=== PATIENT | male | born 1965 | race Caucasian/White ===

== ENCOUNTER 2017-11-13 15:40 | Emergency (ER) | payer MEDICAID ==
[~2017-11-13] VITALS: Ht 175.3 cm; Wt 74.8 kg
[2017-11-13 15:49] VITALS: BP 163/103; Ht 175.3 cm; Wt 74.8 kg
== END 2017-11-13 18:17 | disposition home or self-care (01) ==
LOC: ED 15:40
DX: R33.9 Retention of urine, unspecified (principal)

== ENCOUNTER 2018-09-20 16:27 | Emergency (ER) | payer MEDICAID ==
[~2018-09-20] VITALS: Ht 180.3 cm; Wt 73.0 kg
[2018-09-20 18:12] LABS: UA SPECIFIC GRAVITY <=1.005 (1.005-1.035); microscopic required? YES; urine erythrocyte TRACE (NEGATIVE)
[2018-09-20 21:27] VITALS: BP 126/78
== END 2018-09-20 21:27 | disposition home or self-care (01) ==
LOC: ED 16:27
DX: R33.9 Retention of urine, unspecified (principal); N40.0 Benign prostatic hyperplasia without lower urinary tract symptoms

== ENCOUNTER 2019-10-22 17:37 | Emergency (ER) | payer MEDICAID, SELFPAY ==
[~2019-10-22] VITALS: Ht 182.9 cm; Wt 75.7 kg
[2019-10-22 17:43] VITALS: Ht 182.9 cm; Wt 75.7 kg
[2019-10-22 19:28] VITALS: BP 135/82
== END 2019-10-22 19:28 | disposition home or self-care (01) ==
LOC: ED 17:37
DX: J20.8 Acute bronchitis due to other specified organisms (principal); Z20.828 Contact with and (suspected) exposure to other viral communicable diseases
CPT/HCPCS: Q0092